=== PATIENT | female | born 1985 | race Caucasian/White ===

== ENCOUNTER 2021-10-12 09:21 | Emergency (ER) | payer OTHER ==
[2021-10-12 09:28] VITALS: BP 115/70; PULSE 87; TEMP 98.4; BMI 33.6
[2021-10-12] MEDS ORDERED: LIDOCAINE 5% TOPICAL PATCH TP ONE (10:35)
[2021-10-12 11:24] LABS: EPI CELLS >36 /uL (0-25.1); HYALINE CASTS 1 /uL (0-3.1); PH,URINE 6.5 (5.0-8.0); URINE APPEARANCE CLOUDY; URINE BACTERIA 1265 /uL (0-1359); URINE BILIRUBIN NEGATIVE (NEGATIVE); URINE COLOR YELLOW; URINE GLUCOSE (UA) NEGATIVE (NEGATIVE); URINE KETONE NEGATIVE (NEGATIVE); URINE LEUK ESTERASE NEGATIVE (NEGATIVE); URINE NITRITE NEGATIVE (NEGATIVE); URINE PROTEIN 1+ (NEGATIVE); URINE RBC 7 /uL (0-23.9); URINE WBC 26 /uL (0-25.8)
[2021-10-12 11:34] LABS: HCG,QUALITATIVE URINE Negative
[2021-10-12] MEDS ORDERED: KETOROLAC TROMETHAMINE 15 MG/ML VIAL IM ONE (11:35)
[2021-10-12] MEDS ORDERED: diazePAM 2 MG TABLET PO ONE (11:36)
[2021-10-12] MEDS ORDERED: diazePAM 2 MG TABLET ONE (11:39)
[2021-10-12] MEDS ORDERED: KETOROLAC TROMETHAMINE 15 MG/ML VIAL ONE (11:39)
[2021-10-12] MEDS ORDERED: LIDOCAINE 5% TOPICAL PATCH ONE (11:39)
[2021-10-12] MEDS ORDERED: LIDOCAINE PATCH REMOVAL MC ONE (22:00)
== END 2021-10-12 12:21 | disposition home or self-care (01) ==
LOC: JERFT 09:21 → JER 09:21 → JERFT 12:21
PROC: 3E0233Z Introduction of Anti-inflammatory into Muscle, Percutaneous Approach (ICD-10-PCS; principal; 2021-10-12)
DX: M54.50 Low back pain, unspecified (principal)
CPT/HCPCS: 72100-TC-FY; 81003; 84703; 87086; 96372; 99284-25

== ENCOUNTER 2022-10-19 00:43 | Emergency (ER) | payer OTHER ==
[2022-10-19 01:00] VITALS: BP 129/85; PULSE 81; RESP 20; TEMP 98; BMI 36.6
[2022-10-19] MEDS ORDERED: ACETAMINOPHEN 325 MG TABLET (FP) PO ONE (03:53)
[2022-10-19] MEDS ORDERED: IBUPROFEN 600 MG TABLET (FP) PO ONE ×2 (03:53→04:01)
[2022-10-19] MEDS ORDERED: ACETAMINOPHEN 325 MG TABLET (FP) ONE (04:01)
[2022-10-19 05:24] LABS: EPI CELLS 25 /uL (0-25.1); HYALINE CASTS 27 /uL (0-3.1); URINE APPEARANCE TURBID; URINE BILIRUBIN 2+ (NEGATIVE); URINE COLOR RED; URINE GLUCOSE (UA) NEGATIVE (NEGATIVE); URINE KETONE NEGATIVE (NEGATIVE); URINE LEUK ESTERASE 2+ (NEGATIVE); URINE NITRITE POSITIVE (NEGATIVE); URINE PROTEIN 2+ (NEGATIVE); URINE RBC 2891 /uL (0-23.9); URINE UROBILINOGEN 0.2 mg/dL (0.2-1.0); URINE WBC 16 /uL (0-25.8)
== END 2022-10-19 06:15 | disposition home or self-care (01) ==
LOC: JER 00:43
DX: N94.6 Dysmenorrhea, unspecified (principal); N39.0 Urinary tract infection, site not specified
CPT/HCPCS: 81003; 84703; 87086; 87186; 99283-25